=== PATIENT | male | born 1960 | race Caucasian/White ===

== ENCOUNTER 2018-08-16 19:59 | Emergency (ER) | payer OTHER ==
[2018-08-16] MEDS ORDERED: Lidocaine 1% PF 5 ML VIAL ONE (22:04)
--- NOTE | 2018-08-16 22:26 | RAD ---
Exam:Right hand 3 views HISTORY: Evaluate for foreign body. Laceration to the index finger. COMPARISON: None FINDINGS: Degenerative changes involving the first carpometacarpal articulation. No fracture. No cortical irregularity. No radiopaque foreign body. IMPRESSION: No radiopaque foreign body.
== END 2018-08-16 23:44 | disposition home or self-care (01) ==
LOC: ERS 19:59
DX: S61.210A Laceration without foreign body of right index finger without damage to nail, initial encounter (principal); I10 Essential (primary) hypertension; E78.00 Pure hypercholesterolemia, unspecified; Z79.899 Other long term (current) drug therapy; W45.8XXA Other foreign body or object entering through skin, initial encounter
CPT/HCPCS: 12001; 90471; J2001